=== PATIENT | female | born 2005 | race Caucasian/White ===

== ENCOUNTER 2025-01-28 01:40 | Emergency (ER) | payer MEDICAID ==
[~2025-01-28] VITALS: Ht 167.6 cm; Wt 66.0 kg
[2025-01-28 01:43] VITALS: O2SAT 99
[2025-01-28 01:46] VITALS: TEMP 36.9; O2SAT 100
[2025-01-28 02:00] VITALS: BP 123/62; PULSE 87; RESP 18
[2025-01-28] MEDS: KETOROLAC 15MG/ML VIAL IM ONE (02:00)
[2025-01-28] MEDS ORDERED: NAPR-1176 MT (03:11)
== END 2025-01-28 03:57 | disposition home or self-care (01) ==
LOC: ER 01:55
DX: K04.7 Periapical abscess without sinus (principal); Z79.1 Long term (current) use of non-steroidal anti-inflammatories (NSAID)
CPT/HCPCS: 81025; 96372; 99283